=== PATIENT | male | born 1980 | race Caucasian/White ===

== ENCOUNTER 2021-11-20 20:50 | Emergency (ER) | payer SELFPAY ==
[~2021-11-20] VITALS: Ht 188 cm; Wt 88.0 kg
[2021-11-20 21:13] VITALS: BP 127/66
== END 2021-11-20 21:20 | disposition left against medical advice (07) ==
LOC: ER 20:50
DX: Z53.21 Procedure and treatment not carried out due to patient leaving prior to being seen by health care provider (principal)